=== PATIENT | female | born 1995 | race Hispanic/Latino ===

== ENCOUNTER 2017-05-15 03:11 | Inpatient (IN) | payer BC, SELFPAY ==
[2017-05-15 04:03] LABS: #Monocytes 0.6 thou/uL (0.11-0.59); #Neutrophils 4.2 thou/uL (1.40-6.50); %Basophils 0.7 % (0.0-1.0); %Eosinophils 0.6 % (0.0-10.0); %Lymphocytes 29.3 % (21.0-51.0); %Monocytes 8.8 % (0.0-10.0); %Neutrophils 60.7 % (42.0-75.0); Hemoglobin 14.7 g/dL (12.0-16.0); Mean Corpuscular HGB CONC 33.8 g/dL (32.0-36.0); Mean Corpuscular Hemoglobin 30.3 pg (27.0-31.0); Mean Corpuscular Volume 89.7 fl (81.0-99.0); Mean Platelet Volume 7.9 fL (7.4-10.4); Platelet Count 295 thou/uL (130-400); RBC Distribution Width 12.3 % (11.5-14.5); Red Blood Cell (RBC) Count 4.86 mill/uL (4.20-5.40); White Blood Cell (WBC) Count 6.9 thou/uL (4.8-10.8)
[2017-05-15 04:13] LABS: ALT (SGPT) 974 U/L (8-55); AST (SGOT) 1544 U/L (5-34); Albumin 4.9 g/dL (3.5-5.0); Alkaline Phosphatase 217 U/L (40-150); Anion Gap 13 mmol/L (10-20); BUN (Urea Nitrogen) 14 mg/dL (7.0-18.7); Bilirubin, Total 2.7 mg/dL (0.2-1.2); Calc. Creatinine Clearance 0 mL/min (70-130); Calcium 10.5 mg/dL (7.8-10.44); Carbon Dioxide 30 mmol/L (22-29); Chloride 99 mmol/L (98-107); Estimated GFR-MDRD Greater than 90; Globulin 3.9 g/dL (2.4-3.5); Glucose 128 mg/dL (70-105); Potassium 4.1 mmol/L (3.5-5.1); Protein, Total 8.8 g/dL (6.0-8.3); Sodium 138 mmol/L (136-145)
[2017-05-15] MEDS ORDERED: Ondansetron HCl/PF 4 MG/2 ML Vial IVP PRN ×2 (06:17→19:55)
[2017-05-15] MEDS ORDERED: Ondansetron ODT 4 MG TAB SL PRN (06:17)
[2017-05-15 06:24] VITALS: BMI 28.1
[2017-05-15] MEDS: Sodium Chloride 0.9% 1,000 ML IV SCH ×2 (06:28→14:43)
--- NOTE | 2017-05-15 07:45 | ULT ---
PRELIMINARY REPORT/[facility]/EMERGENCY AFTER HOURS PROCEDURE: EXAM: US Abdomen Limited, Right Upper Quadrant CLINICAL HISTORY: 22 years old, female; Pain and signs and symptoms; Nausea and vomiting; Abdominal pain; Other: Ruq to back pain TECHNIQUE: Real-time ultrasound of the right upper quadrant with image documentation. COMPARISON: No relevant prior studies available. FINDINGS: Liver: No acute findings. No mass. No intrahepatic bile duct dilation. Gallbladder: Multiple small gallstones and sludge. No significant gallbladder wall thickening. Posit ajay Greenfield's sign. Common bile duct: Mildly dilated measuring up to 7.6 mm in diameter. Pancreas: Limited visualization due to bowel gas. Unremarkable as visualized. Right kidney: No acute findings. No stones. No solid mass. No hydronephrosis. IMPRESSION: Cholelithiasis. No significant gallbladder wall thickening. Positive Greenfield's sign. Mild common bile duct dilation. Thank you for allowing us to participate in the care of your patient. Dictated and Authenticated by: Raj Keller MD 05/15/2017 4:43 AM Central Time ([place] & [place]) FINAL REPORT RIGHT UPPER QUADRANT ULTRASOUND: Date: 05/15/17 FINDINGS/IMPRESSION: I agree with the preliminary report given by Dr. Raj Keller of [facility]. POS: [facility]
[2017-05-15] MEDS ORDERED: FLU VACC QS2017-18 36 mo. & older 0.5 ML SYRINGE IM ONE (09:00)
--- NOTE | 2017-05-15 10:47 | HP ---
CHIEF COMPLAINT: Right upper quadrant abdominal pain. HISTORY: The patient is a 22-year-old female who developed right upper quadrant pain, yesterday librado me more progressive. She went to the ER, it was associated with nausea and vomiting, it radiates to the back. No fever. Pain is better now. PAST MEDICAL HISTORY: Otherwise, healthy. PAST SURGICAL HISTORY: None. MEDICATIONS: None. ALLERGIES: No known drug allergies. SOCIAL HISTORY: She is single. She works for [employer]. No tobacco or alcohol. FAMILY HISTORY: Noncontributory. PHYSICAL EXAMINATION: VITAL SIGNS: Temperature 96.9, pulse 62, blood pressure 112/67. GENERAL: She is awake, alert, in no apparent distress. She does have some mild jaundice. LUNGS: Clear. HEART: Regular rate and rhythm. ABDOMEN: Soft. She does have some tenderness in the right upper quadrant, no Greenfield's sign. EXTREMITIES: Unremarkable. LABORATORY AND X-RAY FINDINGS: White count 6.9, H&H 14 and 43, platelet count 295. Electrolytes leslie w an elevated glucose at 128. Her total bilirubin was 2.7, AST 1540, ALT 970, alkaline phosphatase 2 17. Ultrasound showed cholelithiasis with a slightly enlarged common duct. ASSESSMENT: Cholecystitis with a possible common bile duct stone. PLAN: Since she is feeling better, we will repeat the LFTs. If they are continued to go up, I would recommend ERCP. If they are dropping, then we can proceed with laparoscopic cholecystectomy with ch olangiogram. CONSENT: I have discussed the planned procedure as well as risk of bleeding, infection, injury to bi le duct, injury to bowel, need to open. She understands and gives informed consent.
[2017-05-15 11:24] LABS: ALT (SGPT) 1249 U/L (8-55); AST (SGOT) 1248 U/L (5-34); Albumin 4.2 g/dL (3.5-5.0); Alkaline Phosphatase 249 U/L (40-150); Bilirubin, Direct 1.3 mg/dL (0.1-0.3); Bilirubin, Total 3.3 mg/dL (0.2-1.2); Protein, Total 7.4 g/dL (6.0-8.3)
[2017-05-15] MEDS: Piperacillin/Tazobactam 3.375 GM in Sodium Chloride 0.9% 100 ML IVPB SCH ×2 (13:01→21:18)
[2017-05-15] MEDS ORDERED: Scopolamine 1.5 mg/72 hour Patch TD SCH (13:30)
[2017-05-15] MEDS ORDERED: Ketorolac Tromethamine 30 MG/ML VIAL IVP SCH (13:30)
[2017-05-15] MEDS ORDERED: Acetaminophen 1,000 MG in Premix Bag 1 BAG IVPB SCH (13:30)
[2017-05-15] MEDS ORDERED: ePHEDrine/0.9% NaCl/PF SYRINGE 50 mg/10 ml ONE (13:53)
[2017-05-15] MEDS ORDERED: Ondansetron HCl/PF 4 MG/2 ML Vial ONE ×2 (13:53→17:25)
[2017-05-15] MEDS ORDERED: PROPOFOL 200 MG/20 ML VIAL ONE (13:53)
[2017-05-15] MEDS ORDERED: Lidocaine 1% PF 5 ML VIAL ONE (13:53)
--- NOTE | 2017-05-15 15:03 | HP ---
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 Her job does not involve heavy lifting. The patient several weeks has had problems of ep igastric pain, nausea, back radiation. She presented in the emergency room. Ultrasound revealed com mon bile duct 7.6 mm, positive Greenfield sign and multiple gallstones. She had continuous right upper q uadrant epigastric pain. LABORATORY DATA: Her sodium 138, BUN 14, creatinine 0.74. Bilirubin 2.7 last night, 3.3 this morning. AST, ALT are e levated 1544 and 974. Alkaline phosphatase is 217. By this time of exam, she is feeling somewhat be tter and does not have much pain. She has been on Zosyn. ALLERGIES: None. TOBACCO: None. ALCOHOL: Rarely. MEDICATIONS: None routinely. PAST SURGICAL AND MEDICAL HISTORY: Noncontributory. SOCIAL HISTORY: She lives with her family in [place]. She is not . She is single. She is gra chioma 0, para 0. PHYSICAL EXAMINATION VITAL SIGNS: 5 feet, 254 pounds, 28 BMI, in no distress. 96.9, 62, 16 respiratory rate. HEENT: Sclerae nonicteric. SKIN: Nonjaundiced. LYMPH: Neck, axillae or groins without lymphadenopathy. NEUROLOGICAL: Intact. No focal deficits. LUNGS: Clear to auscultation. CARDIAC: Regular rate and rhythm without murmur or gallop. ABDOMEN: Soft. Minimal tenderness in the right upper quadrant. EXTREMITIES: No ankle edema. Unremarkable. LABORATORIES: As noted above. ASSESSMENT AND PLAN: Cholecystitis, cholelithiasis. She had a positive sonographic Greenfield sign. It is possible the liver function test elevation are due to cholecystitis, although she is not in any p ain or tenderness at this time whether upper limits normal, common bile duct. Dr. Snyder has seen her and plan is to consider laparoscopic cholecystectomy after ERCP. If Dr. Snyder, however, feels that he would prefer to do a laparoscopic cholecystectomy and cholangiograms and reserve ERCP only if andres cated. We can approach UA, we will await Dr. Snyder opinion. Risk of laparoscopic cholecystectomy in cluding infection, bleeding, visceral and biliary injury, re-operation, open operation were discussed . Questions answered.
[2017-05-15] MEDS ORDERED: Iothalamate Meglumine 60% 50 ML VIAL FS ONE (15:36)
[2017-05-15] MEDS ORDERED: Indomethacin 50 MG SUPP ONE (15:40)
[2017-05-15] MEDS ORDERED: Indomethacin 50 MG SUPP PR SCH (16:45)
[2017-05-15] MEDS ORDERED: Fentanyl 100 MCG/2 ML VIAL ONE (17:25)
[2017-05-15] MEDS ORDERED: Famotidine/PF 20 mg/2ml Vial ONE (17:25)
[2017-05-15] MEDS ORDERED: Lidocaine 1% w/Epinephrine 1:100K 30 ML VIAL ONE (18:26)
[2017-05-15] MEDS ORDERED: Bupivacaine 0.5% 10 ML VIAL ONE (18:26)
--- NOTE | 2017-05-15 18:56 | CON ---
DATE OF CONSULTATION: 05/15/2017 REASON FOR CONSULTATION: Possible choledocholithiasis. CONSULTING PHYSICIAN: Dr. Roe Franks. HISTORY OF PRESENT ILLNESS: The patient is a 22-year-old female with no significant past medical his tory presenting with complaints of right upper quadrant abdominal pain. She states that she has been having intermittent complaints of epigastric abdominal pain, nausea, with radiation of the pain to h er back that has been occurring for approximately last 2 weeks; however, over the last 24-48 hours, s he had significant worsening of her pain located within the right upper quadrant, characterized as sh adriana/stabbing in nature, 10/10 in severity that radiated to her back. She had associated nausea witho ut vomiting, chills, constipation, increased abdominal bloating and chest pain. With worsening of th is abdominal pain, he prompted her to seek healthcare attention. On admission to the ER, she was not ed to have significantly elevated AST and ALT on routine labs as well as a right upper quadrant ultra sound that showed mild dilation of the common bile duct concerning for choledocholithiasis. Currentl y, she states she is doing much better with decreased pain with IV pain medications. Currently, zia es any nausea, vomiting, fevers, chills, odynophagia, dysphagia or chest pain. REVIEW OF SYSTEMS: A 10 category review of systems was obtained with all responses negative except f or the pertinent positives as listed in the HPI. PAST MEDICAL HISTORY: None. PAST SURGICAL HISTORY: None. FAMILY HISTORY: None. SOCIAL HISTORY: She denies any tobacco or illicit drug use. She does drink 1-2 beers approximately 1-2 times per month. ALLERGIES: None. OUTPATIENT MEDICATIONS: No routine medications, although she did take full strength aspirin x2 prior to admission. PHYSICAL EXAMINATION: VITAL SIGNS: Temperature of 96.7, pulse 56, blood pressure 118/63, respiratory rate 16, satting 98% on room air. GENERAL: The patient is lying in bed, in no acute distress. Alert and oriented x4. NECK: Supple. No JVD noted. CARDIOVASCULAR: Regular rate and rhythm with no discernible murmurs, gallops or rubs. RESPIRATORY: Clear to auscultation bilaterally with no discernible wheezes or rales. ABDOMEN: Normoactive bowel sounds, soft, mild abdominal distention. Tenderness to palpation in the midepigastric, right upper quadrant, and right lower quadrant. EXTREMITIES: No cyanosis, clubbing or edema. LABORATORY DATA: CBC with a white blood cell count of 6.9, hemoglobin 14.7, hematocrit 43.6, platele ts 295. Chemistry with a sodium of 138, potassium 4.1, chloride 99, CO2 30, BUN 14, creatinine 0.74. AST 1248, ALT 1249, alkaline phosphatase 249, total bilirubin 3.3. IMAGING DATA: Right upper quadrant ultrasound obtained on 05/15/2017 showed the presence of a mildly dilated common bile duct, dilated to 7.6 mm, multiple stones were seen within the gallbladder as wel l as sludge, but no intrahepatic dilatation was noted. ASSESSMENT AND PLAN: The patient is a 22-year-old female with no significant past medical history pr esenting with probable choledocholithiasis. Choledocholithiasis. The patient is presenting with intermittent mid epigastric and right upper quad rant abdominal pain that has been occurring over the last 2 weeks, but with worsening over the last 2 4-48 hours. Given the degree of elevation of her LFTs on admission including a total bilirubin of 3. 3 and mild dilation of the distal common bile duct, it is concerning for the presence of choledocholi thiasis. Given the degree of elevation of her LFTs, her differential could also acute viral hepatiti s, vascular abnormalities (less likely), toxin/medication administration (less likely given her histo ry), and/or possible malignancy (much less likely). At this time, she would benefit from urgent ERCP for evaluation of the common bile duct and possible stone extraction. RECOMMENDATIONS: 1. Please maintain n.p.o. status for this patient given the likelihood of ERCP today. 2. Agree with antibiotic administration of broad spectrum antibiotics given the possibility of ascen ding cholangitis. 3. We will plan for ERCP later on today with 100 mg of rectal indomethacin given prior to the proced ure for prophylaxis against post-ERCP pancreatitis. 4. We will continue IV fluid administration as you are doing. 5. We will defer to General Surgery service for the timing of cholecystectomy that should be perform ed during this hospitalization.
--- NOTE | 2017-05-15 18:59 | RAD ---
ERCP: 05/15/17 Six fluoroscopic images from the OR are presented. INDICATION: Intraoperative imaging during ERCP procedure. FINDINGS/IMPRESSION: These images show opacification of the common bile duct as well as hepatic radicles and cystic duct. No filling defect or stricture identified. POS: [facility]
[2017-05-15] MEDS ORDERED: Piperacillin/Tazobactam 3.375 GM VIAL ONE (19:06)
[2017-05-15] MEDS ORDERED: SUGAMMADEX SODIUM 500 MG/5 ML VIAL ONE (19:45)
[2017-05-15] MEDS ORDERED: Promethazine HCl 25 MG/ML VIAL ONE ×2 (19:53→20:36)
[2017-05-15] MEDS ORDERED: Promethazine HCl 25 MG/ML VIAL IM PRN (19:55)
[2017-05-15] MEDS ORDERED: Promethazine HCl 25 MG/ML VIAL SLOW IVP PRN (19:55)
--- NOTE | 2017-05-15 20:26 | OP ---
DATE OF PROCEDURE: 05/15/2017 PROCEDURE: Endoscopic retrograde cholangiopancreatography with sphincterotomy. INDUSTRIAL CHEMICALS SUPERVISOR PHYSICIAN: Dr. Josh Morales INDICATION FOR PROCEDURE: Elevated LFTs, possible choledocholithiasis. DESCRIPTION OF PROCEDURE: After the risks and benefits of the procedure were explained to the patient including risks of bleeding, infection, perforation, reactions to anesthesia pain and/or pancreatitis, informed consent was obtained. The patient was then taken to the endoscopy suite where general anesthesia was administered via anesthesia support. The standard duodenoscope was then introduced into the mouth with intubation of the esophagus, stomach and proximal small intestine with the findings listed below. The patient tolerated the procedure well with no immediate perioperative complications. EGD: Limited visualization of the esophagus, stomach and small bowel was performed with no mucosal abnormalities seen within the esophagus, stomach or proximal small bowel. ERCP: The duodenoscope was advanced into the proximal small bowel/second portion of the duodenum with the ampulla of Vater identified along the anterior wall. The ampulla itself appeared normal with no discernible impaction or edema. The sphincterotome was then introduced into the scope and using guidewire, the ampulla was cannulated. A cholangiogram was then performed with the common bile duct measuring approximately 6-7 mm in size with no discernible filling defects. Using the sphincterotome, a sphincterotomy was then cut with minimal bleeding was noted afterwards. The sphincterotome was then exchanged for a 9-12 mm balloon. With the balloon in place, the balloon was advanced into the distal common bile duct. With inflation of the balloon and occlusion, cholangiogram was performed. Again, no discernible filling defect was seen along the entire length of the common bile duct and common hepatic duct. The balloon was then advanced up to the hilum and with inflation of the balloon, 2 successive sweeps were performed. On each sweep, a minimal to moderate amount of dark colored sludge was obtained but no stone or stone debris was extracted from the common bile duct. Drainage of the common bile duct was then noted on fluoroscopy with good drainage over the course of 5 minutes. Then, all equipment was then removed from the patient and the procedure was terminated. IMPRESSION: Successful sphincterotomy of the ampulla of Vater with mild to moderate amount of biliary sludge extricated from the common bile duct. No evidence of stone or stone debris. RECOMMENDATIONS: 1. Follow up with the General Surgery Service for cholecystectomy. 2. We would continue to trend LFTs daily for resolution of abnormalities. 3. We would continue antibiotics in the post ERCP and post cholecystectomy for prophylaxis of infection. 4. Pain control per primary team. 5. If the LFTs do not decrease within the next 24-48 hours, we would consider an alternative diagnosis for her abnormal liver function tests. BEATRIZ
[2017-05-15] MEDS ORDERED: Ibuprofen 600 MG TAB PO PRN (20:53)
[2017-05-15] MEDS ORDERED: traMADol HCl 50 MG TAB PO PRN ×2 (20:53)
[2017-05-15] MEDS ORDERED: Acetaminophen 500 MG TAB PO PRN (20:53)
[2017-05-16 04:58] LABS: ALT (SGPT) 716 U/L (8-55); AST (SGOT) 289 U/L (5-34); Albumin 3.5 g/dL (3.5-5.0); Alkaline Phosphatase 211 U/L (40-150); Bilirubin, Direct 0.7 mg/dL (0.1-0.3); Protein, Total 6.1 g/dL (6.0-8.3)
[2017-05-16 05:03] LABS: #Lymphocytes 1.7 thou/uL (1.20-3.40); #Monocytes 0.6 thou/uL (0.11-0.59); #Neutrophils 5.5 thou/uL (1.40-6.50); %Eosinophils 0.6 % (0.0-10.0); %Lymphocytes 21.9 % (21.0-51.0); %Monocytes 7.2 % (0.0-10.0); %Neutrophils 70.2 % (42.0-75.0); Hemoglobin 11.3 g/dL (12.0-16.0); Mean Corpuscular HGB CONC 33.8 g/dL (32.0-36.0); Mean Corpuscular Hemoglobin 30.7 pg (27.0-31.0); Mean Corpuscular Volume 90.9 fl (81.0-99.0); Mean Platelet Volume 7.8 fL (7.4-10.4); Platelet Count 228 thou/uL (130-400); RBC Distribution Width 12.2 % (11.5-14.5); Red Blood Cell (RBC) Count 3.68 mill/uL (4.20-5.40); White Blood Cell (WBC) Count 7.8 thou/uL (4.8-10.8)
--- NOTE | 2017-05-16 07:32 | OP ---
DATE OF PROCEDURE: 05/15/2017 PREOPERATIVE DIAGNOSES: Cholecystitis, cholelithiasis, choledocholithiasis. POSTOPERATIVE DIAGNOSES: Cholecystitis, cholelithiasis, choledocholithiasis. PROCEDURE: Laparoscopic video cholecystectomy (Dr. Thanh Snyder performed ERCP, sphincterotomy with stone extraction (00:18) under the same anesthesia (General anesthesia local of 0.5% Marcaine w ith epinephrine, 30 mL, mixed with 1% Xylocaine with epinephrine 20 mL). PROCEDURE IN DETAIL: Patient was taken to the operating room after ERCP, sphincterotomy, stone extra ction by Dr. Snyder under general anesthesia in supine position. Abdomen was prepared with ChloraPrep , draped in routine fashion. Local anesthetic infiltrated into skin and subcutaneous tissue about th e operative sites. Infraumbilical incision made and pneumoperitoneum to 15 mmHg obtained with the Ve ress needle, replacing it with a 5-port laparoscope inserted. Right subxiphoid incision made and 11- port placed. Right subcostal incision made, mid clavicular anterior axillary lines and [address] Fundus of the gallbladder grasped and reflected cephalad. Infundibulum grasped and reflected lat erally. Cystic artery and duct dissected free. Critical view obtained. Cystic artery and duct doub ly clipped proximally, divided, and gallbladder dissected free from the liver bed obtaining good hemo stasis prior to division of final peritoneal attachments. Gallbladder and stones removed, submitted to Pathology. Good hemostasis ensured in the gallbladder bed, irrigant and pneumoperitoneum evacuate d. All instruments removed and all skin incisions approximated with interrupted subdermal 4-0 Monocr yl and DermaGlue applied.
[2017-05-16 07:54] VITALS: TEMP 97
[2017-05-16 11:44] VITALS: BP 99/54
--- NOTE | 2017-05-16 14:59 | PRG ---
DATE OF SERVICE: 05/16/2017 SUBJECTIVE: Ms. Moody is doing well today. She is status post laparoscopic cholecystectomy after E ALTERATION INSPECTOR, sludge extraction, sphincterotomy by Dr. Snyder. She is tolerating her diet. She has not had an y nausea or vomiting. She is ambulating without problems. OBJECTIVE: VITAL SIGNS: Temperature 97 degrees, pulse 54, respiratory rate 14, blood pressure 99/54. LUNGS: Clear to auscultation. CARDIAC: Regular rate and rhythm without murmur or gallop. ABDOMEN: Soft, nontender, nondistended. Surgical wounds look good. LABORATORY DATA: This morning, white count is 7, hemoglobin 11.3. Basic metabolic profile was donna l. Bilirubin is down to 2.0. AST and ALT 289 and 716, that down from 1248 and 1249 respectfully. A lkaline phosphatase decreased from 249 to 211 this morning. ASSESSMENT AND PLAN: Doing well and discharged home. No diet or activity restrictions. Diet as new erated. [id number] Tylenol, Motrin p.r.n. pain, and Ultram if needed. She will fill this only if needed. She may shower and bathe whenever. If she wants she can follow up in my office in 2 to 3 weeks. She can return to work in the next few days.
--- NOTE | 2017-05-16 18:04 | EKG ---
Test Reason : Blood Pressure : / mmHG Vent. Rate : 114 BPM Atrial Rate : 114 BPM P-R Int : 116 ms QRS Dur : 078 ms QT Int : 344 ms P-R-T Axes : 069 063 -37 degrees QTc Int : 474 ms Sinus tachycardia Cannot rule out Inferior infarct , age undetermined T wave abnormality, consider anterolateral ischemia Abnormal ECG Confirmed by SUNIL SULLIVAN, WILLIAM ([id number]), film editor supervisor THERESA MELGOZA ([id number]) on 05/16/2017 6:03:44 PM Referred By: Confirmed By:WILLIAM BARBER MD
--- NOTE | 2017-05-16 19:02 | DIS ---
DATE OF ADMISSION: 05/15/2017 DATE OF DISCHARGE: 05/16/2017 DISCHARGE DIAGNOSES: Cholecystitis, cholelithiasis, choledocholithiasis (sludge in the common bile d uct) elevated liver function tests. HISTORY: A 22-year-old female admitted by Dr. Herron's call, but care turned over to me. The patient had elevated liver function tests and transaminases. Ultrasound revealed gallstones with dilated bi le duct. She was seen by Dr. Snyder. She underwent ERCP, sphincterotomy, sludge extraction under the same anesthetic underwent laparoscopic video cholecystectomy. Postoperatively convalesced, tolerate d diet. Her transaminases and bilirubin are improved. Although not yet normal. She is being discha rged home with followup in my office in 2-3 weeks. Diet and activity as tolerated.
== END 2017-05-16 15:16 | disposition home or self-care (01) | DRG 418 ==
LOC: ERS 03:11 → SJJU 04:50
PROVIDERS: ADMIT Specialist; ATTEND Specialist
PROC: 0FT44ZZ Resection of Gallbladder, Percutaneous Endoscopic Approach (ICD-10-PCS; principal; 2017-05-15)
PROC: 0F798ZZ Dilation of Common Bile Duct, Via Natural or Artificial Opening Endoscopic (ICD-10-PCS; 2017-05-15)
PROC: BF100ZZ Fluoroscopy of Bile Ducts using High Osmolar Contrast (ICD-10-PCS; 2017-05-15)
DX: K80.60 Calculus of gallbladder and bile duct with cholecystitis, unspecified, without obstruction (principal); R17 Unspecified jaundice
CPT/HCPCS: 36415; 74330; 76705; 80053; 80076; 85025; 88304; 93005; 96360; A4216; J0131; J1610; J1885; J2001; J2270; J2405; J2543; J2550; J2704; J3010; J3490; J7050; Q9961; S0028

== ENCOUNTER 2017-12-29 08:52 | Outpatient (CLI) | payer BC ==
--- NOTE | 2017-12-29 11:39 | ULT ---
OB ULTRASOUND: Indication: sized and dates. FINDINGS: 21 week 2 day gestation by ultrasound. BPD 21 weeks 0 days HC 21 weeks 1 day AC 21 weeks 0 day FL 21 weeks 4 days Estimated weight: 406 grams heart rate: 133 beats/minute Placenta: Anterior Presentation: Vertex Amniotic fluid: Within normal limits. CRISTHIAN recorded at 10.05 cm. Cervical length: 3.5 cm anatomy evaluated includes intracranial contents, four-chamber heart, stomach, kidneys, cord in sertion, bladder, spine, face, extremities and three vessel cord. No abnormality identified. IMPRESSION: 21 week 2 day gestation by ultrasound. No abnormality identified. POS: [facility]
== END 2017-12-29 08:53 | disposition home or self-care (01) ==
LOC: BICULT 08:52
PROVIDERS: ATTEND Family Medicine
DX: Z34.02 Encounter for supervision of normal first pregnancy, second trimester (principal); Z3A.21 21 weeks gestation of pregnancy
CPT/HCPCS: 76805

== ENCOUNTER 2018-05-10 03:10 | Inpatient (IN) | payer MEDICAID, OTHER, SELFPAY ==
[2018-05-10 03:46] VITALS: BMI 37.2
--- NOTE | 2018-05-10 03:54 | PDOC.LDHP ---
Labor and Delivery H&P HPI: Patient of Dr richter here for irregulat CTXs. No LOF, no VB, good FM. No issues. Review of Systems: complete ROS completed and as per HPI Current gestational age (weeks): 41 (2 days) Dating criteria: last menstrual period Grav: 1 Current complications: none Abnormal US findings: No Current medications: pre-minh vitamins Previous surgical history: other (Willa soliman 2017) Allergies/Adverse Reactions: Allergies Allergy/AdvReac Type Severity Reaction Status Date / Time No Known Allergies Allergy Verified 05/10/18 03:47 - Physical Exam Vital signs reviewed and normal: yes General: NAD Heart: RRR Lungs: CTAB Abdomen: gravid (&#) Extremeties: no edema FHT: category 1 [place] contractions every: irregular - Vaginal Exam cm dilated: 4 Effacement: 75% Station: -1 - Assessment Latent labor at full term. - Plan Plan: observation in L&D (We will recheck in 2 hours, keep on monitors for now)
[2018-05-10] MEDS ORDERED: Penicillin G Potassium 5 MILL.UNITS VIAL ONE (05:58)
[2018-05-10] MEDS: Lactated Ringer's 1,000 ML IV SCH ×2 (06:00→14:37)
[2018-05-10] MEDS ORDERED: Lidocaine 1% (PF) 30 ML VIAL SC PRN (06:04)
[2018-05-10] MEDS ORDERED: Butorphanol Tartrate 1 MG/ML VIAL SLOW IVP PRN (06:04)
[2018-05-10] MEDS ORDERED: HYDROcodone/Acetaminophen 5/325 mg Tablet PO PRN ×4 (06:04→12:57)
[2018-05-10] MEDS ORDERED: Ibuprofen 800 MG TAB PO PRN (06:04)
[2018-05-10] MEDS ORDERED: Promethazine HCl 25 MG/ML VIAL IM PRN ×2 (06:04→06:42)
--- NOTE | 2018-05-10 06:04 | PDOC.EVN ---
Event Note - Event Note Event Note: exam 6cm..admit to Dr richter.
[2018-05-10] MEDS ORDERED: Fentanyl 4 mcg/Bup 0.1% Cadd 100 ML ONE (06:15)
[2018-05-10] MEDS ORDERED: Penicillin G Potassium 5 MILL.UNITS in Sodium Chloride 0.9% 100 ML IVPB SCH (06:15)
[2018-05-10 06:20] LABS: Hemoglobin 13.5 g/dL (12.0-16.0); Mean Corpuscular HGB CONC 34.5 g/dL (32.0-36.0); Mean Corpuscular Hemoglobin 31.9 pg (27.0-31.0); Mean Corpuscular Volume 92.3 fL (78.0-98.0); Mean Platelet Volume 8.1 fL (7.4-10.4); Platelet Count 192 thou/uL (130-400); RBC Distribution Width 12.1 % (11.5-14.5); Red Blood Cell (RBC) Count 4.22 mill/uL (4.20-5.40); White Blood Cell (WBC) Count 14.2 thou/uL (4.8-10.8)
[2018-05-10] MEDS ORDERED: Acetaminophen 325 MG TAB PO PRN (06:42)
[2018-05-10] MEDS ORDERED: ePHEDrine/0.9% NaCl/PF SYRINGE 50 mg/10 ml SLOW IVP PRN (06:42)
[2018-05-10] MEDS ORDERED: Eucerin (Mineral Oil/Petrolatum,White) 30 gm Jar TOP PRN (06:42)
[2018-05-10] MEDS ORDERED: Naloxone HCl 0.4 mg/ml Vial IVP PRN ×2 (06:42)
[2018-05-10] MEDS ORDERED: diphenhydrAMINE 50 MG/ML VIAL IVP PRN (06:42)
[2018-05-10] MEDS ORDERED: Ondansetron PF 4 MG/2 ML Vial IVP PRN ×2 (06:42→12:57)
[2018-05-10] MEDS ORDERED: Lactated Ringer's 500 ML IV PRN (06:42)
[2018-05-10] MEDS ORDERED: Fentanyl 4 mcg/Bupivacaine 0.1% Cassette 100 ML EPIDURAL SCH (06:45)
[2018-05-10] MEDS ORDERED: Communication Order-Pharmacy FS SCH (06:45)
[2018-05-10 07:05] LABS: Syphilis Antibody Nonreactive (Nonreactive); Syphilis Antibody Index 0.04 S/CO (<1.00 Non-Reactive)
[2018-05-10 07:16] LABS: HBSAg Index 0.25 S/CO (0-0.99); HIV (1/2) Antibody/Antigen Non-Reactive (NonReactive); HIV 1/2 INDEX 0.12 S/CO (<1.00); Hep B Surf Ag Non-Reactive S/CO (NonReactive)
[2018-05-10] MEDS ORDERED: NS / Oxytocin 40 units/1000ml 1,000 ML ONE (07:20)
[2018-05-10] MEDS ORDERED: Lidocaine 1% (PF) 30 ML VIAL ONE (07:20)
[2018-05-10] MEDS ORDERED: Penicillin G 2.5 MILL.units 2.5 MILL.UNITS in Premix Bag 1 BAG IVPB SCH (09:00)
[2018-05-10] MEDS: NS / Oxytocin 40 units/1000ml 1,000 ML IV PRN ×2 (10:28→11:34)
[2018-05-10] MEDS ORDERED: Bupivacaine HCl 0.25%/Epi 0.0005/PF 10 ML VIAL FS ONE ×2 (11:11)
[2018-05-10] MEDS ORDERED: Benzocaine/Menthol 20-0.5% 60 ML CAN TOP PRN (12:57)
[2018-05-10] MEDS ORDERED: Milk Of Magnesia 30 ML UDCUP PO PRN (12:57)
[2018-05-10] MEDS ORDERED: NS / Oxytocin 40 units/1000ml 1,000 ML IV SCH (12:57)
[2018-05-10] MEDS ORDERED: diphenhydrAMINE 25 MG CAP PO PRN (12:57)
[2018-05-10] MEDS ORDERED: Bisacodyl 10 MG SUPP PR PRN (12:57)
[2018-05-10] MEDS ORDERED: Lanolin Ointment 7 GM TUBE TOP PRN (12:57)
[2018-05-10] MEDS: Ibuprofen 800 MG TAB PO SCH ×2 (14:35→21:39)
[2018-05-10] MEDS: Ferrous Sulfate 325 MG TAB PO SCH (17:55)
[2018-05-10] MEDS: Docusate Calcium (SURFAK) 240 MG CAP PO SCH (21:39)
[2018-05-11] MEDS: Ibuprofen 800 MG TAB PO SCH ×3 (05:14→21:31)
[2018-05-11 06:45] LABS: Hemoglobin 11.7 g/dL (12.0-16.0); Mean Corpuscular Volume 94.1 fL (78.0-98.0); Mean Platelet Volume 7.8 fL (7.4-10.4); Platelet Count 167 thou/uL (130-400); RBC Distribution Width 12.4 % (11.5-14.5); Red Blood Cell (RBC) Count 3.65 mill/uL (4.20-5.40)
[2018-05-11] MEDS: Ferrous Sulfate 325 MG TAB PO SCH ×2 (08:53→16:50)
[2018-05-11] MEDS: Docusate Calcium (SURFAK) 240 MG CAP PO SCH ×2 (08:53→21:30)
[2018-05-11] MEDS ORDERED: Prenatal Vitamin 1 TAB PO SCH (09:00)
[2018-05-12] MEDS: Ibuprofen 800 MG TAB PO SCH (05:43)
[2018-05-12 08:53] VITALS: BP 119/57; TEMP 98.4
[2018-05-12] MEDS: Ferrous Sulfate 325 MG TAB PO SCH (09:35)
[2018-05-12] MEDS: Docusate Calcium (SURFAK) 240 MG CAP PO SCH (09:37)
== END 2018-05-12 11:00 | disposition home or self-care (01) | DRG 807 ==
LOC: L&D/OP 03:10 → L&D 06:01 → 3SW 13:49
PROVIDERS: ADMIT Family Medicine; ATTEND Family Medicine
PROC: 10E0XZZ Delivery of Products of Conception, External Approach (ICD-10-PCS; principal; 2018-05-10)
PROC: 10907ZC Drainage of Amniotic Fluid, Therapeutic from Products of Conception, Via Natural or Artificial Opening (ICD-10-PCS; 2018-05-10)
PROC: 0HQ9XZZ Repair Perineum Skin, External Approach (ICD-10-PCS; 2018-05-10)
PROC: 0UQMXZZ Repair Vulva, External Approach (ICD-10-PCS; 2018-05-10)
DX: O48.0 Post-term pregnancy (principal); Z37.0 Single live birth; Z90.49 Acquired absence of other specified parts of digestive tract; Z3A.40 40 weeks gestation of pregnancy
CPT/HCPCS: 36415; 51702; 85027; 86780; 86850; 86900; 86901; 87340; 87389; 99285; J2001; J2540

== ENCOUNTER 2020-01-25 14:43 | Outpatient (CLI) | payer OTHER ==
--- NOTE | 2020-01-25 15:57 | ULT ---
Obstetric sonogram HISTORY: evaluation. FINDINGS: Single intrauterine gestation in breech presentation. Cervix is closed and 4.9 cm. Maternal adnexa not well visualized. Urinary bladder is unremarkable. Grade 0 placenta is anterior. Amniotic fluid is within normal limits. spine and kidneys are int act as visualized. Four-chamber heart motion at 146 bpm. Three-vessel cord shows a normal insertion. No gross intracranial abnormalities are apparent. Measurements are as follows: Biparietal diameter 21 weeks 3 days Head circumference 21 weeks 6 days Abdominal circumference 22 weeks 6 days Femur length 21 weeks 5 days Estimated date of delivery based on today's sonogram05/30/2020 [place] 95 percentile. IMPRESSION : Single intrauterine gestation in breech presentation. Estimated gestational age 22 weeks 0 days.
== END 2020-01-25 14:44 | disposition home or self-care (01) ==
LOC: BICULT 14:43
PROVIDERS: ATTEND Family Medicine
DX: Z34.82 Encounter for supervision of other normal pregnancy, second trimester (principal); Z3A.22 22 weeks gestation of pregnancy
CPT/HCPCS: 76805